=== PATIENT | male | born 1955 | race Caucasian/White ===

== ENCOUNTER 2017-10-02 06:15 | Emergency (ER) | payer OTHER ==
[~2017-10-02] VITALS: Ht 172.7 cm; Wt 74.8 kg
[~2017-10-02 06:15] MED LIST: CELLCEPT500 MG PO; ONDANSETRON HCL4 M2 PO; ZOLOFT25 MG PO
[2017-10-02] MEDS ORDERED: PERCOCET 5-3251 EACH PO (07:44)
[2017-10-02] MEDS ORDERED: PREDNISONE 20 M20 M1 PO (07:44)
[2017-10-02 08:00] VITALS: BP 170/98
== END 2017-10-02 08:10 | disposition home or self-care (01) ==
LOC: M.ERS 06:15
DX: M25.522 Pain in left elbow (principal)

== ENCOUNTER 2020-07-15 21:38 | Emergency (ER) | payer OTHER ==
[~2020-07-15] VITALS: Ht 172.7 cm; Wt 80.7 kg
[~2020-07-15 21:38] MED LIST changes: +PERCOCET 5-3251 EACH PO; +PREDNISONE 20 M20 M1 PO
[2020-07-15 23:13] VITALS: BP 166/106
== END 2020-07-15 23:14 | disposition home or self-care (01) ==
LOC: M.ERS 21:38
DX: S01.01XA Laceration without foreign body of scalp, initial encounter (principal); I10 Essential (primary) hypertension; Z88.5 Allergy status to narcotic agent; V87.7XXA Person injured in collision between other specified motor vehicles (traffic), initial encounter; Y93.89 Activity, other specified; Y92.89 Other specified places as the place of occurrence of the external cause; Y99.8 Other external cause status

== ENCOUNTER 2020-11-07 10:49 | Emergency (ER) | payer OTHER ==
[~2020-11-07] VITALS: Ht 172.7 cm; Wt 74.8 kg
[2020-11-07 11:08] VITALS: BP 155/92
[2020-11-07] MEDS ORDERED: CHOLESTEROL PILL PO (11:11)
[2020-11-07] MEDS ORDERED: BLOOD PRESSURE PO (11:11)
[2020-11-07] MEDS ORDERED: [UNRECOGNIZED DRUG - REMARK] PO (11:12)
[2020-11-07] MEDS ORDERED: PREDNISONE 10 M10 MG PO (11:24)
[2020-11-07] MEDS ORDERED: BENADRYL25 MG PO (11:29)
[2020-11-07] MEDS ORDERED: TRIANEX430 GM TOP (11:29)
[2020-11-07] MEDS ORDERED: HYDROXYZINE HCL25 M2 PO (11:29)
== END 2020-11-07 11:43 | disposition home or self-care (01) ==
LOC: M.ERS 10:49
DX: R21 Rash and other nonspecific skin eruption (principal); L29.9 Pruritus, unspecified; I10 Essential (primary) hypertension; Z94.4 Liver transplant status; Z79.899 Other long term (current) drug therapy; Z88.5 Allergy status to narcotic agent